=== PATIENT | female | born 1985 | race American Indian/Alaskan Native ===

== ENCOUNTER 2016-10-01 12:57 | Emergency (ER) | payer SELFPAY ==
[2016-10-01 13:23] VITALS: BP 141/78
[2016-10-01] MEDS ORDERED: BSS 1 DROPS, TETRACAINE 0.5% 1 DROPS, FUL-GLO 1 MG OS ONE (15:22)
--- NOTE | 2016-10-01 15:25 | Emergency Department Report ---
Eye Injury/Foreign Body - HPI Duration: 1 Day Eye Location: Left Severity: Moderate Tetanus Status: Up to Date Eye Symptoms: Eye Pain: Yes, Blurred Vision: Yes, Eye Redness: Yes, Grinding/ Hammering Metal: No, Used Eye Protection: No, Contact Lens Use: No, Recalls Injury: No, Photophobia: Yes Other History: 30-year-old -Maltese female comes in for complaint of left eye. Patient reports that she was lying on the couch last night and her left eyes started to water. Today she reports is now painful cloudy and watery. She does admit to wearing false eyelashes yesterday she did remove them so she is not quite sure if it could be on the blue. She has no past medical history. ED Review of Systems ROS: Stated complaint: LEFT EYE IRRITATION Other details as noted in HPI ED Past Medical Hx - Past Medical History Previous Medical History?: No - Surgical History Past Surgical History?: No - Social History Smoking Status: Never Smoker Substance Use Type: Alcohol - Medications Home Medications: Home Medications Medication Instructions Recorded Confirmed Last Taken Type Ibuprofen [Motrin 600 MG tab] 600 mg PO Q8H PRN #30 tablet 10/01/16 Unknown Rx Ofloxacin 0.3% [Floxin Otic] 1 drops OS BID #1 bottle 10/01/16 Unknown Rx Eye Injury Exam - Exam General: Vital signs noted. No distress. Alert and acting appropriately. - Visual Acuity Right Eye Exam: Left Fluorescein Uptake, Left Photophobia, Both EOMI, Neither Injection, Neither Chemosis, Neither Abnormal Pupil, Neither Eye Foreign Body, Neither Lid Foreign Body, Neither Mucous Discharge, Neither Purulent Discharge, Neither Cell/Flare (slit lamp), Neither Corneal Edema ED Course Vital Signs 10/01/16 13:19 Temperature 98.3 F Pulse Rate 81 Respiratory 18 Rate Blood Pressure 141/78 O2 Sat by Pulse 100 Oximetry Critical care attestation.: If time is entered above; I have spent that time in minutes in the direct care of this critically ill patient, excluding procedure time. ED Disposition Clinical Impression: Corneal abrasion, left Qualifiers: Encounter type: initial encounter Qualified Code(s): S05.02XA - Injury of conjunctiva and corneal abrasion without foreign body, left eye, initial encounter Disposition: DISCHARGED TO HOME OR SELFCARE Is pt being admited?: No Does the pt Need Aspirin: No Condition: Stable Instructions: Corneal Abrasion (ED) Additional Instructions: Please use the eyedrops as prescribed. It is very important for you to follow up with the cath lab tech for adequate treatment of your cornea abrasion. You can take the Motrin for pain wear sunglasses to help with the sun sensitivity. Prescriptions: Ibuprofen [Motrin 600 MG tab] 600 mg PO Q8H PRN #30 tablet PRN Reason: Pain Ofloxacin 0.3% [Floxin Otic] 1 drops OS BID #1 bottle Referrals: PRIMARY CARE, [Primary Care Provider] - 3-5 Days ABHISHEK RECINOS MD [Staff Physician] - 3-5 Days [facility] [Provider Group] - 3-5 Days [facility] [Provider Group] - 3-5 Days [facility] [Provider Group] - 3-5 Days Forms: Work/School Release Form(ED)
[2016-10-01] MEDS ORDERED: FUL-GLO OP ONE (15:42)
[2016-10-01] MEDS ORDERED: BSS ONE (15:43)
[2016-10-01] MEDS ORDERED: TETRACAINE 0.5% ONE (15:43)
== END 2016-10-01 16:31 | disposition home or self-care (01) ==
LOC: ED 12:57
DX: S05.02XA Injury of conjunctiva and corneal abrasion without foreign body, left eye, initial encounter (principal); X58.XXXA Exposure to other specified factors, initial encounter; Y93.9 Activity, unspecified; Y92.9 Unspecified place or not applicable; Y99.9 Unspecified external cause status
CPT/HCPCS: 99282

== ENCOUNTER 2016-10-23 09:59 | Emergency (ER) | payer MEDICAID ==
[2016-10-23 10:47] VITALS: BP 110/61
--- NOTE | 2016-10-23 11:04 | Emergency Department Report ---
Entered by KARY ALEXANDRA, acting as scribe for SINAN THOMSON PA. Chief Complaint: Vaginal Bleeding Stated Complaint: LOWER ABD PAIN/BLOOD CLOTS Time Seen by Provider: 10/23/16 10:51 - HPI History of Present Illness: Patient presents to the ED c/o lower abdominal pain and a blood clot that began 2 days ago. Patient states that she visited [facility] on 10/21/2016 and an ultrasound was performed, which showed a blot clot in her lower abdomen that she is unable to pass. Rates pain an 8/10, which worsens with sitting and standing. Reports having an at [facility] on 2016. - ROS Review of Systems: All system are negative unless stated in HPI above. - Exam Vital Signs: Vital Signs 10/23/16 10:40 Temperature 98.7 F Pulse Rate 74 Respiratory 18 Rate Blood Pressure 110/61 O2 Sat by Pulse 97 Oximetry Physical Exam: General: well nourished, well developed, nontoxic in appearance, in no acute distress Cardiovascular: S1/S2 regular rate and rhythm. No murmur Abdomen: TTP near pelvic area MSE screening note: Focused history and physical exam performed. Due to findings the following was ordered: ED Medical Decision Making - Medical Decision Making Medical decision making: Patient seen by provider in triage area. Appropriate protocol activated and patient to main ED to be seen by provider ED Disposition for MSE Condition: Stable This documentation as recorded by the scribe,KARY ALEXANDRA,accurately reflects the service I personally performed and the decisions made by nc,SINAN THOMSON PA.
[2016-10-23 11:16] LABS: Basophils % (Auto) 0.7 % (0.0-1.8); Hematocrit 32.8 % (30.3-42.9); Hemoglobin 10.5 gm/dl (10.1-14.3); Mean Corpuscular HGB Conc 32 % (30-34); Mean Corpuscular Hemoglobin 27 pg (28-32); Mean Corpuscular Volume 84 fl (79-97); Platelet Count 269 K/mm3 (140-440); Red Blood Count 3.91 M/mm3 (3.65-5.03); Red Cell Distribution Width 14.6 % (13.2-15.2); White Blood Count 4.6 K/mm3 (4.5-11.0)
[2016-10-23 12:34] LABS: Bilirubin,Urine NEG (Negative); Blood,Urine NEG (Negative); Ketones,Urine NEG (Negative); Leukocyte Esterase,Urine NEG (Negative); Mucus,Urine FEW /HPF; Nitrite,Urine NEG (Negative); Protein,Urine <15 mg/dL mg/dL (Negative); Urobilinogen,Urine < 2.0 mg/dL (<2.0)
--- NOTE | 2016-10-23 13:07 | Ultrasound Report ---
ULTRASOUND OB LESS THAN 14 WEEKS - TRANSABDOMINAL AND TRANSVAGINAL INDICATION: Status post medical with retained clot. Serum beta-hCG of 6456 units. COMPARISON: None similar at this institution. FINDINGS: Transabdominal and transvaginal pelvic sonography, status post on 09/24/2016, demonstrates 8.5 x 4.5 x 4.7 cm anteverted uterus. Endometrial thickening to approximately 2.6 cm as on endovaginal image 8 and slightly heterogeneous/echogenic with intrinsic vascularity noted. Minimal pelvic free fluid. Unremarkable 2.5 x 1.9 x 2 cm left ovary. Right ovary is 3 x 2.1 x 2 cm and demonstrates a 1.1 cm peripheral follicular cyst. CONCLUSION: Thickened, echogenic endometrium, suspicious for retained products of conception in the given setting. Please correlate. Thank you for the opportunity to participate in this patient's care.
--- NOTE | 2016-10-23 14:43 | Emergency Department Report ---
HPI - General Chief Complaint: Vaginal Bleeding Time Seen by Provider: 10/23/16 11:00 - HPI HPI: This is a 30-year-old -Togolese female presents emergency Department with complaint of some lower abdominal discomfort that has been going on since she had an elective on September 24. She had this done at [facility]. She was supposed to follow-up 2 weeks after the procedure was done but it got postponed. She went there a few days ago and had an ultrasound done and was told that there is a retained blood clot within the uterus. She was put on Misoprostol but she has not had any vaginal bleeding or expel any clots. She denies any fever, nausea, vomiting, vaginal discharge, dysuria, back pain. She does not have a MANAGER TELE[facility]RY otherwise and does not have a primary care doctor. ED Past Medical Hx - Past Medical History Previous Medical History?: Yes Additional medical history: vaginal delivery x 2 - Surgical History Past Surgical History?: Yes Additional Surgical History: Medical 09-24-2016 - Social History Smoking Status: Never Smoker Substance Use Type: Prescribed - Medications Home Medications: Home Medications Medication Instructions Recorded Confirmed Last Taken Type Ibuprofen [Motrin 600 MG tab] 600 mg PO Q8H PRN #30 tablet 10/01/16 Unknown Rx Ofloxacin 0.3% [Floxin Otic] 1 drops OS BID #1 bottle 10/01/16 Unknown Rx HYDROcodone/APAP 5-325 [[place] 1 each PO Q6HR PRN #12 tablet 10/23/16 Unknown Rx 5/325] ED Review of Systems ROS: Stated complaint: LOWER ABD PAIN/BLOOD CLOTS Other details as noted in HPI Comment: All other systems reviewed and negative Constitutional: denies: chills, fever Eyes: denies: eye pain, eye discharge, vision change ENT: denies: ear pain, throat pain Respiratory: denies: cough, shortness of breath, wheezing Cardiovascular: denies: chest pain, palpitations Gastrointestinal: denies: abdominal pain, nausea, diarrhea Genitourinary: other (pelvic pain). denies: dysuria, discharge Musculoskeletal: denies: back pain, joint swelling, arthralgia Skin: denies: rash, lesions Neurological: denies: headache, weakness, paresthesias Physical Exam - Physical Exam Vital Signs: Vital Signs 10/23/16 10/23/16 10:40 14:05 Temperature 98.7 F Pulse Rate 74 Respiratory 18 16 Rate Blood Pressure 110/61 O2 Sat by Pulse 97 Oximetry Physical Exam: GENERAL: The patient is well-developed well-nourished. HEENT: Normocephalic. Atraumatic. Extraocular motions are intact. Patient has moist mucous membranes. NECK: Supple. Trachea is midline.. CHEST/LUNGS: Clear to auscultation. There is no respiratory distress noted. HEART/CARDIOVASCULAR: Regular. There is no tachycardia. There is no gallop rub or murmur. ABDOMEN: Abdomen is soft, nontender. Patient has normal bowel sounds. There is no abdominal distention. SKIN: Skin is warm and dry. NEURO: The patient is awake, alert, and oriented. The patient is cooperative. The patient has no focal neurologic deficits. The patient has normal speech. MUSCULOSKELETAL: There is no tenderness or deformity. There is no limitation range of motion. There is no evidence of acute injury. : No bleeding or products of conception seen in the vaginal vault. The cervical os is closed. ED Course Vital Signs 10/23/16 10/23/16 10:40 14:05 Temperature 98.7 F Pulse Rate 74 Respiratory 18 16 Rate Blood Pressure 110/61 O2 Sat by Pulse 97 Oximetry - Consultations Consultation #1: With the MANAGER TELEMETRY on-call, Dr. Anguiano, regarding the patient's presentation and ultrasound findings. Dr. Anguiano felt that the patient just needs [facility] as she may need a D&C in the near future. 10/23/16 14:51 ED Medical Decision Making - Lab Data Result diagrams: 10/23/16 10:55 - Radiology Data Radiology results: report reviewed Transvaginal ultrasound shows a thickened echogenic endometrium suspicious for retained products of conception. - Medical Decision Making 30-year-old female presents to the emergency department with complaint of some pelvic discomfort has been going on since she had a elective about 1 month ago. She was at the clinic where she had the procedure done, and swollen 2 days ago, and had an ultrasound and was told that there is a retained blood clot. She was placed on misoprostol she has not had any passing of clots or products of conception. Patient's labs today have been unremarkable. Vital signs stable including being afebrile. She does not have a toxic or rigid abdomen. Ultrasound shows a thickened echogenic endometrium suspicious for retained products of conception. It is possible that this is blood clot versus retained products of conception but there is something still in the uterus and it was not seen within the vaginal vault on pelvic exam done here in the emergency department. Spoke with MANAGER TELE[facility] who did not feel that there was any emergent intervention necessary through the emergency department. Recommends follow-up with the clinic. - Differential Diagnosis , fibroids., Retained products of conception Critical Care Time: No Critical care attestation.: If time is entered above; I have spent that time in minutes in the direct care of this critically ill patient, excluding procedure time. ED Disposition Clinical Impression: Pelvic pain, Retained products of conception Disposition: DISCHARGED TO HOME OR SELFCARE Is pt being admited?: No Condition: Stable Additional Instructions: Please [facility] as soon as possible. I referral for other [facility]NAGER [employer] services as well but it is highly recommended that he follow-up with the clinic that did your procedure. Return to the emergency department with any intractable fever, intractable pain or any acute distress. You've been prescribed a medication that is sedating. Therefore this medication cannot be mixed with alcohol, or taken prior to driving, working, or being responsible for children. Prescriptions: HYDROcodone/APAP 5-325 [[place]permont 5/325] 1 each PO Q6HR PRN #12 tablet PRN Reason: Pain Referrals: PRIMARY CAREMD [Primary Care Provider] - 3-5 Days [facility] [Provider Group] - 3-5 Days [facility] [Provider Group] - 3-5 Days Time of Disposition: 14:49
== END 2016-10-23 15:00 | disposition home or self-care (01) ==
LOC: ED 09:59
DX: O03.4 Incomplete spontaneous abortion without complication (principal); R10.2 Pelvic and perineal pain
CPT/HCPCS: 36415; 76801; 76817; 81001; 84702; 85025; 86850; 86900; 86901

== ENCOUNTER 2017-10-07 11:31 | Emergency (ER) | payer SELFPAY ==
[2017-10-07 12:19] VITALS: BP 103/65
[2017-10-07 13:24] LABS: Basophils % (Auto) 0.5 % (0.0-1.8); Eosinophils # (Auto) 0.2 K/mm3 (0.0-0.4); Eosinophils % (Auto) 4.9 % (0.0-4.3); Hematocrit 38.4 % (30.3-42.9); Hemoglobin 12.3 gm/dl (10.1-14.3); Lymphocytes # (Auto) 1.2 K/mm3 (1.2-5.4); Lymphocytes % (Auto) 34.4 % (13.4-35.0); Mean Corpuscular HGB Conc 32 % (30-34); Mean Corpuscular Hemoglobin 27 pg (28-32); Mean Corpuscular Volume 84 fl (79-97); Monocytes # (Auto) 0.5 K/mm3 (0.0-0.8); Monocytes % (Auto) 13.9 % (0.0-7.3); Platelet Count 231 K/mm3 (140-440); Red Blood Count 4.58 M/mm3 (3.65-5.03); Red Cell Distribution Width 15.9 % (13.2-15.2)
[2017-10-07 13:48] LABS: Alanine Aminotransferase 11 units/L (7-56); Albumin 3.2 g/dL (3.9-5); BUN/Creatinine Ratio 8; Blood Urea Nitrogen 6 mg/dL (7-17); Calcium 8.2 mg/dL (8.4-10.2); Hemolysis Index 4
== END 2017-10-07 13:00 | disposition left against medical advice (07) ==
LOC: ED 11:31
DX: M79.89 Other specified soft tissue disorders (principal); Z53.21 Procedure and treatment not carried out due to patient leaving prior to being seen by health care provider
CPT/HCPCS: 36415; 80053; 85025

== ENCOUNTER 2018-12-29 01:26 | Emergency (ER) | payer SELFPAY ==
[2018-12-29 02:16] VITALS: BP 101/60
== END 2018-12-29 04:12 | disposition left against medical advice (07) ==
LOC: ED 01:26
DX: H53.8 Other visual disturbances (principal); Z53.21 Procedure and treatment not carried out due to patient leaving prior to being seen by health care provider
CPT/HCPCS: 82962

== ENCOUNTER 2019-09-24 21:40 | Emergency (ER) | payer SELFPAY ==
--- NOTE | 2019-09-24 21:44 | Emergency Department Report ---
Blank Doc - Documentation Documentation: 33-year-old female that prsents with chest pain and SOB. This initial assessment/diagnostic orders/clinical plan/treatment(s) is/are subject to change based on patient's health status, clinical progression and re- assessment by fellow clinical providers in the ED. Further treatment and workup at subsequent clinical providers discretion. Patient/guardians urged not to elope from the ED as their condition may be serious if not clinically assessed and managed. Initial orders include: 1- Patient sent to [facility] for further evaluation and treatment 2- EKG 3- CXR
[2019-09-24 21:46] VITALS: BP 125/77
--- NOTE | 2019-09-24 22:45 | XRay Report ---
CHEST 2 VIEWS INDICATION / CLINICAL INFORMATION: cp/sob. COMPARISON: None available. FINDINGS: SUPPORT DEVICES: None. HEART / MEDIASTINUM: No significant abnormality. LUNGS / PLEURA: No significant pulmonary or pleural abnormality. No pneumothorax. ADDITIONAL FINDINGS: No significant additional findings. IMPRESSION: 1. No acute findings. Signer Name: Gabriele Hooker MD Signed: 09/24/2019 10:40 PM Workstation Name: [id number]
== END 2019-09-25 01:40 | disposition home or self-care (01) ==
LOC: ED 21:40
DX: R07.9 Chest pain, unspecified (principal); R06.02 Shortness of breath
CPT/HCPCS: 71046; 93005; 93010

== ENCOUNTER 2021-02-07 19:07 | Emergency (ER) | payer MEDICAID ==
[2021-02-07 19:26] VITALS: BP 140/86
== END 2021-02-07 22:00 | disposition left against medical advice (07) ==
LOC: ED 19:07
DX: K08.89 Other specified disorders of teeth and supporting structures (principal); Z53.21 Procedure and treatment not carried out due to patient leaving prior to being seen by health care provider

== ENCOUNTER 2021-02-08 03:07 | Emergency (ER) | payer MEDICAID ==
[2021-02-08 04:47] VITALS: BP 140/78
[2021-02-08] MEDS ORDERED: IBUPROFEN 800 MG TAB PO ONE (06:50)
[2021-02-08] MEDS ORDERED: ACETAMINOPHEN W/CODEINE 300-30 MG TAB PO ONE (06:50)
[2021-02-08] MEDS ORDERED: LIDOCAINE VISCOUS 2% 15 ML ORAL LIQD PO ONE (06:50)
--- NOTE | 2021-02-08 07:22 | Emergency Department Report ---
ED ENT HPI - General Chief complaint: Dental/Oral Stated complaint: MAJOR TOOTHACHE Time Seen by Provider: 02/08/21 07:17 Source: patient Mode of arrival: Ambulatory Limitations: No Limitations - History of Present Illness MD complaint: tooth pain -: Gradual Location: tooth # Severity: moderate Improves with: none Worsens with: none Context- Dental: history of dental caries Associated Symptoms: toothache. denies: sore throat, tinnitus, discharge from ear, rhinorrhea - Related Data Previous Rx's Medication Instructions Recorded Last Taken Type Ibuprofen [Motrin 600 MG tab] 600 mg PO Q8H PRN #30 tablet 10/01/16 Unknown Rx Ofloxacin 0.3% [Floxin 0.3% Otic] 1 drops OS BID #1 bottle 10/01/16 Unknown Rx HYDROcodone/APAP 5-325 [[place]us 1 each PO Q6HR PRN #12 tablet 10/23/16 Unknown Rx 5/325] Amoxicillin [Amoxicillin TAB] 875 mg PO BID #20 tablet 02/08/21 Unknown Rx Chlorhexidine Mouthwash [Peridex] 5 ml MM BID #1 bottle 02/08/21 Unknown Rx Lidocaine Viscous 2% 5 ml MM Q3H PRN #120 udc 02/08/21 Unknown Rx Allergies Allergy/AdvReac Type Severity Reaction Status Date / Time No Known Allergies Allergy Verified 10/07/17 12:14 ED Dental HPI - General Chief complaint: Dental/Oral Stated complaint: MAJOR TOOTHACHE Time Seen by Provider: 02/08/21 07:17 Source: patient Mode of arrival: Ambulatory Limitations: No Limitations - Related Data Previous Rx's Medication Instructions Recorded Last Taken Type Ibuprofen [Motrin 600 MG tab] 600 mg PO Q8H PRN #30 tablet 10/01/16 Unknown Rx Ofloxacin 0.3% [Floxin 0.3% Otic] 1 drops OS BID #1 bottle 10/01/16 Unknown Rx HYDROcodone/APAP 5-325 [[place]us 1 each PO Q6HR PRN #12 tablet 10/23/16 Unknown Rx 5/325] Amoxicillin [Amoxicillin TAB] 875 mg PO BID #20 tablet 02/08/21 Unknown Rx Chlorhexidine Mouthwash [Peridex] 5 ml MM BID #1 bottle 02/08/21 Unknown Rx Lidocaine Viscous 2% 5 ml MM Q3H PRN #120 udc 02/08/21 Unknown Rx Allergies Allergy/AdvReac Type Severity Reaction Status Date / Time No Known Allergies Allergy Verified 10/07/17 12:14 ED Review of Systems ROS: Stated complaint: MAJOR TOOTHACHE Other details as noted in HPI Comment: All other systems reviewed and negative ED Past Medical Hx - Past Medical History Additional medical history: vaginal delivery x 2, Anemia takes Iron - Surgical History Additional Surgical History: Medical 09-24-2016 - Social History Smoking Status: Current Every Day Smoker Substance Use Type: None - Medications Home Medications: Home Medications Medication Instructions Recorded Confirmed Last Taken Type Ibuprofen [Motrin 600 MG tab] 600 mg PO Q8H PRN #30 tablet 10/01/16 Unknown Rx Ofloxacin 0.3% [Floxin 0.3% Otic] 1 drops OS BID #1 bottle 10/01/16 Unknown Rx HYDROcodone/APAP 5-325 [Cactus 1 each PO Q6HR PRN #12 tablet 10/23/16 Unknown Rx 5/325] Amoxicillin [Amoxicillin TAB] 875 mg PO BID #20 tablet 02/08/21 Unknown Rx Chlorhexidine Mouthwash [Peridex] 5 ml MM BID #1 bottle 02/08/21 Unknown Rx Lidocaine Viscous 2% 5 ml MM Q3H PRN #120 udc 02/08/21 Unknown Rx ED Physical Exam - General Limitations: No Limitations General appearance: alert, in no apparent distress - Head Head exam: Present: atraumatic, normocephalic - Eye Eye exam: Present: normal appearance - ENT ENT exam: Present: mucous membranes moist, other (Pain tenderness to the left lower molar around tooth #18 and 19 with some adjacent gingival erythema no abscess is noted. Tenderness with palpation. Tongue and uvula are midline airway patent no rigidity) - Neck Neck exam: Present: normal inspection - Respiratory Respiratory exam: Present: normal lung sounds bilaterally. Absent: respiratory distress - Cardiovascular Cardiovascular Exam: Present: regular rate, normal rhythm. Absent: systolic murmur, diastolic murmur, rubs, gallop - GI/Abdominal GI/Abdominal exam: Present: soft, normal bowel sounds - Extremities Exam Extremities exam: Present: normal inspection - Back Exam Back exam: Present: normal inspection - Neurological Exam Neurological exam: Present: alert, oriented X3 - Psychiatric Psychiatric exam: Present: normal affect, normal mood - Skin Skin exam: Present: warm, dry, intact, normal color. Absent: rash ED Course Vital Signs 02/08/21 04:35 Temperature 99.1 F Pulse Rate 61 Respiratory 18 Rate Blood Pressure 140/78 O2 Sat by Pulse 98 Oximetry Critical care attestation.: If time is entered above; I have spent that time in minutes in the direct care of this critically ill patient, excluding procedure time. ED Disposition Clinical Impression: Dentalgia Disposition: DC-01 TO HOME OR SELFCARE Is pt being admited?: No Does the pt Need Aspirin: No Condition: Stable Prescriptions: Amoxicillin [Amoxicillin TAB] 875 mg PO BID #20 tablet Lidocaine Viscous 2% 5 ml MM Q3H PRN #120 udc PRN Reason: Pain, Moderate (4-6) Chlorhexidine Mouthwash [Peridex] 5 ml MM BID #1 bottle Referrals: ALEE MARTÍNEZ MD [Primary Care Provider] - 3-5 Days [facility] [Outside] - 3-5 Days
== END 2021-02-08 07:59 | disposition home or self-care (01) ==
LOC: ED 03:07
DX: K08.89 Other specified disorders of teeth and supporting structures (principal)
CPT/HCPCS: 99282